=== PATIENT | male | born 1950 | race Caucasian/White ===

== ENCOUNTER 2017-08-19 08:33 | Outpatient (CLI) | payer OTHER | END 2017-08-19 08:43 | disposition home or self-care (01) | LOC: TOM 08:33 | DX: R97.20 Elevated prostate specific antigen [PSA] (principal); R31.0 Gross hematuria | CPT/HCPCS: 74178; Q9965 ==

== ENCOUNTER 2017-09-09 09:26 | Outpatient (CLI) | payer OTHER | END 2017-09-09 09:30 | disposition home or self-care (01) | LOC: LAB 09:26 | DX: R97.20 Elevated prostate specific antigen [PSA] (principal) ==

== ENCOUNTER 2017-09-16 07:30 | Outpatient (CLI) | payer OTHER | END 2017-09-16 08:00 | disposition home or self-care (01) | LOC: SONOGRAMA 07:30 | DX: R97.20 Elevated prostate specific antigen [PSA] (principal) ==

== ENCOUNTER 2019-05-18 07:42 | Inpatient (IN) | payer OTHER ==
[~2019-05-18] VITALS: Ht 175.3 cm; Wt 72.6 kg
== END 2019-06-01 10:07 | disposition home or self-care (01) | DRG 708 ==
LOC: O/R 05-30 05:00 → SURH 05-30 05:00
PROVIDERS: ADMIT Urology
PROC: 0VT00ZZ Resection of Prostate, Open Approach (ICD-10-PCS; principal; 2019-05-30 07:00)
DX: N40.1 Benign prostatic hyperplasia with lower urinary tract symptoms (principal); R33.8 Other retention of urine

== ENCOUNTER 2019-10-21 06:13 | Day surgery (SDC) | payer OTHER | END 2019-10-21 14:31 | disposition home or self-care (01) | LOC: CIR.AMB 06:13 | PROVIDERS: ATTEND Urology | DX: N32.0 Bladder-neck obstruction (principal); N40.0 Benign prostatic hyperplasia without lower urinary tract symptoms; R33.9 Retention of urine, unspecified; R00.0 Tachycardia, unspecified ==